=== PATIENT | female | born 1995 | race Caucasian/White ===

== ENCOUNTER 2016-11-29 00:10 | Emergency (ER) | payer OTHER ==
[~2016-11-29] VITALS: Ht 167.6 cm; Wt 65.0 kg
[2016-11-29 00:12] VITALS: BP 154/108; PULSE 122; RESP 16; TEMP 98.6; O2SAT 98
--- NOTE | 2016-11-29 00:52 | PD ---
HPI Chief Complaint: ENT Complaint Time Seen by Provider: 00:49 Travel History International Travel<30 days: No Contact w/Intl Traveler<30days: No Traveled to known affect area: No History of Present Illness HPI 21-year-old white female presents to emergency Department with complaints of decreased hearing her left rear. She states that she feels that she is getting an ear infection. She has used [id number] ear wax cleaning drops because she felt the wax was causing her ear infection. She also has been swimming in the ocean. She claims that she pushed the wax back into her ear and some worsening tonight. She denies any fever or chills. No runny nose, cough or congestion. The right ear is unremarkable. [facility] Past Medical History Narrative Medical Otitis externa, left TM perforation Diminished Hearing: No Immunizations Current: Yes Tetanus Vaccination: < 5 Years Influenza Vaccination: No ?: Unknown LMP: 11/23/16 Past Surgical History Surgical History: No Previous Surgery Social History Alcohol Use: Yes (OCCASIONAL) Tobacco Use: Yes (1/2 PPD) Substance Use: No Allergies-Medications (Allergen,Severity, Reaction): Coded Allergies: No Known Allergies (Unverified , 11/29/16) Review of Systems Except as stated in HPI: all other systems reviewed are Neg General / Constitutional: No: Fever, Chills Eyes: No: Diploplia, Blurred Vision HENT: Positive: Ear Discharge, Earache, No: Sore Throat, Congestion, Nosebleed Cardiovascular: No: Chest Pain or Discomfort, Palpitations Physical Exam Narrative GENERAL: Well-developed, well-nourished in no acute distress. Nontoxic appearing. HEAD: Normocephalic, atraumatic. EYES: Pupils equal round and reactive. Extraocular motions intact. No scleral icterus. No injection or drainage. ENT: The right TMs clear without erythema. The right external auditory canals clear. The left TM is nonvisualized. The left external auditory canal is clear with cerumen. No pain on palpation of the left pinna and tragus. Nose: clear . Posterior pharynx is pink and moist. No tonsillar edema or exudate. Uvula midline. Airway patent. NECK: Trachea midline.Supple, nontender, moves head freely. No central bony tenderness or spasm. CARDIOVASCULAR: Regular rate and rhythm without murmurs, gallops, or rubs. RESPIRATORY: Clear to auscultation. Breath sounds equal bilaterally. No wheezes , rales, or rhonchi. GASTROINTESTINAL: Abdomen soft, non-tender, nondistended. No hepato-splenomegaly , or palpable masses. No guarding. EXTREMITIES: No clubbing, cyanosis, or edema. No joint tenderness, effusion, or edema noted. BACK: Nontender without deformity or crepitance. No flank tenderness. Data Data Last Documented VS Vital Signs Date Time Temp Pulse Resp B/P Pulse Ox O2 Delivery O2 Flow Rate FiO2 11/29/16 00:12 98.6 122 16 154/108 98 Room Air MDM Medical Decision Making Medical Screen Exam Complete: Yes Emergency Medical Condition: Yes Medical Record Reviewed: Yes Differential Diagnosis Differential diagnosis: Cerumen impaction, otitis externa, TM perforation, mastoiditis Narrative Course Patient's left eardrum is excluded with cerumen. He is irrigated clear by the nursing staff. The TMs clear. No perforation after irrigation. Diagnosis Primary Impression: Left ear impacted cerumen Additional Impression: Left otitis externa Patient Instructions: General Instructions Additional Instructions: Rest. Increase fluids. Medications as directed. No Q-tips. Follow-up with a medical doctor in one week. Med/Other Pt SpecificInfo: Prescription(s) given Disposition: 01 DISCHARGE HOME Condition: Stable Brian Coburn Nov 29, 2016 00:52
[2016-11-29] MEDS ORDERED: NEOM1SOL17 OT (00:53)
== END 2016-11-29 01:15 | disposition home or self-care (01) ==
LOC: NEPD 00:10
DX: H61.22 Impacted cerumen, left ear (principal); H60.92 Unspecified otitis externa, left ear; F17.200 Nicotine dependence, unspecified, uncomplicated
CPT/HCPCS: 99283